=== PATIENT | female | born 1985 | race Caucasian/White ===

== ENCOUNTER → 2016-08-08 | Outpatient (CLI) | payer MEDICAID ==
[~2016-08-08] VITALS: Ht 167.6 cm; Wt 128.1 kg
[~2016-08-08] MED LIST: CEFTIN 250250 MG/TAB PO; FLINTSTONES COM1 CT1 PO; MOTRIN 200200 MG/TAB; NATURE'S BLE1000 MCG PO; NEURONTIN100 MG/CAP PO; NORCO 325 MG-7.1 TAB PO; PHENTERMINE15 MG PO; ROXICODONE 55 MG/TAB PO; TYLENOL 500MG500 MG PO; ULTRAM 50MG TAB50 MG PO; VITAMIN D1000 IU PO; XANAX XR1 M1 PO; ZOFRAN 4MG T4 MG/TAB PO
[2016-08-08 16:13] VITALS: BP 131/57; PULSE 104
[2016-08-08 16:34] VITALS: BP 131/57; PULSE 104
[2016-08-08 16:42] VITALS: BP 131/57; PULSE 104
== END ==
LOC: LIGHT 06-18 09:09
DX: F50.81 Binge eating disorder (principal); E78.4 Other hyperlipidemia; E66.01 Morbid (severe) obesity due to excess calories; Z68.42 Body mass index [BMI] 45.0-49.9, adult

== ENCOUNTER → 2016-08-27 | Outpatient (CLI) | payer MEDICAID ==
[~2016-08-27] VITALS: Ht 167.6 cm; Wt 124.7 kg
[2016-08-27 15:11] VITALS: BP 131/68; PULSE 83
[2016-08-27 17:57] VITALS: BP 131/68; PULSE 83
== END ==
LOC: LIGHT 14:26
DX: F50.89 Other specified eating disorder (principal); E78.4 Other hyperlipidemia; E66.01 Morbid (severe) obesity due to excess calories; Z68.41 Body mass index [BMI] 40.0-44.9, adult

== ENCOUNTER → 2016-09-24 | Outpatient (CLI) | payer MEDICAID ==
[~2016-09-24] VITALS: Ht 167.6 cm; Wt 124.7 kg
[2016-09-24 14:26] VITALS: BP 133/67; PULSE 75
== END ==
LOC: LIGHT 11:57
DX: F50.89 Other specified eating disorder (principal); E78.4 Other hyperlipidemia; F41.1 Generalized anxiety disorder; E66.01 Morbid (severe) obesity due to excess calories; Z68.41 Body mass index [BMI] 40.0-44.9, adult

== ENCOUNTER → 2016-10-14 | Outpatient (CLI) | payer MEDICAID ==
[~2016-10-14] VITALS: Ht 167.6 cm; Wt 124.7 kg
[2016-10-14 14:27] VITALS: BP 109/56; PULSE 92
== END ==
LOC: LIGHT 14:20
DX: F50.81 Binge eating disorder (principal); E78.4 Other hyperlipidemia; E66.01 Morbid (severe) obesity due to excess calories; Z68.41 Body mass index [BMI] 40.0-44.9, adult; F41.1 Generalized anxiety disorder

== ENCOUNTER 2016-11-06 16:50 | Inpatient (IN) | payer MEDICAID ==
[~2016-11-06] VITALS: Ht 167.6 cm; Wt 122.1 kg
[~2016-11-06 16:50] MED LIST changes: -FLINTSTONES COM1 CT1 PO; -NATURE'S BLE1000 MCG PO; -ROXICODONE 55 MG/TAB PO; -TYLENOL 500MG500 MG PO; -VITAMIN D1000 IU PO; -ZOFRAN 4MG T4 MG/TAB PO
[2016-11-27] VITALS (12 sets, daily range): BP systolic 121–133; BP diastolic 64–90; PULSE 77–98; TEMP 97.5–98
[2016-11-28 01:34] VITALS: BP 107/53; PULSE 72; TEMP 98.6
[2016-11-28 05:24] VITALS: BP 126/74; PULSE 70; TEMP 97.5
[2016-11-28 09:58] VITALS: BP 116/71; PULSE 68; TEMP 98.2
[2016-11-28] MEDS ORDERED: ZOFRAN 4MG T4 MG/TAB PO (12:14)
[2016-11-28] MEDS ORDERED: ROXICODONE 55 MG/TAB PO (12:15)
[2016-11-28] MEDS ORDERED: TYLENOL 500MG500 MG PO (12:17)
[2017-01-20] MEDS ORDERED: FLINTSTONES COM1 CT1 PO (13:24)
[2017-01-20] MEDS ORDERED: NATURE'S BLE1000 MCG PO (13:25)
[2017-01-20] MEDS ORDERED: VITAMIN D1000 IU PO (13:29)
== END 2016-11-28 13:20 | disposition home or self-care (01) | DRG 621 ==
LOC: SURG 11-27 05:59 → INPTSU 11-27 05:59 → SURG 11-27 08:30
PROVIDERS: Surgery
PROC: 0DB64Z3 Excision of Stomach, Percutaneous Endoscopic Approach, Vertical (ICD-10-PCS; principal; 2016-11-27 08:30)
DX: E66.01 Morbid (severe) obesity due to excess calories (principal); Z68.41 Body mass index [BMI] 40.0-44.9, adult; F50.81 Binge eating disorder; F41.1 Generalized anxiety disorder; Z87.891 Personal history of nicotine dependence
CPT/HCPCS: A9284; J0690; J1100; J1170; J1885; J2405; J2550; J2704; J7042; J7120; Q9968

== ENCOUNTER → 2016-11-13 | Outpatient (CLI) | payer MEDICAID ==
[~2016-11-13] MED LIST changes: +FLINTSTONES COM1 CT1 PO; +NATURE'S BLE1000 MCG PO; +ROXICODONE 55 MG/TAB PO; +TYLENOL 500MG500 MG PO; +VITAMIN D1000 IU PO; +ZOFRAN 4MG T4 MG/TAB PO
== END ==
LOC: LIGHT 14:00
DX: E66.01 Morbid (severe) obesity due to excess calories (principal); E78.4 Other hyperlipidemia; F41.1 Generalized anxiety disorder; E50.9 Vitamin A deficiency, unspecified

== ENCOUNTER → 2016-11-18 | Outpatient (CLI) | payer MEDICAID | LOC: LIGHT 09:48 | DX: Z02.89 Encounter for other administrative examinations (principal) ==

== ENCOUNTER 2016-12-05 22:23 | Emergency (ER) | payer MEDICAID ==
[~2016-12-05] VITALS: Ht 167.6 cm; Wt 113.6 kg
[~2016-12-05 22:23] MED LIST changes: -FLINTSTONES COM1 CT1 PO; -NATURE'S BLE1000 MCG PO; -VITAMIN D1000 IU PO
[2016-12-05 22:26] VITALS: BP 107/96; TEMP 97.9
[2016-12-05 23:20] LABS: PH 5 (5-8); URINE APPEARANCE Hazy; URINE BACTERIA Many /hpf; URINE BILIRUBIN Negative (NEGATIVE); URINE BLOOD 1+ (NEGATIVE); URINE COLOR Yellow; URINE GLUCOSE Negative (NEGATIVE); URINE KETONE 2+ (NEGATIVE); URINE UROBILINOGEN Negative (NEGATIVE); URINE WBC 20-50 /hpf
[2016-12-06] MEDS ORDERED: CEFTIN 250250 MG/TAB PO (00:12)
[2016-12-06 00:21] VITALS: PULSE 96
[2017-01-20] MEDS ORDERED: FLINTSTONES COM1 CT1 PO (13:24)
[2017-01-20] MEDS ORDERED: NATURE'S BLE1000 MCG PO (13:25)
[2017-01-20] MEDS ORDERED: VITAMIN D1000 IU PO (13:29)
== END 2016-12-06 00:21 | disposition home or self-care (01) ==
LOC: COL.ER 22:23
PROVIDERS: Emergency Medicine
DX: N39.0 Urinary tract infection, site not specified (principal); Z87.891 Personal history of nicotine dependence; Z98.890 Other specified postprocedural states; Z32.02 Encounter for pregnancy test, result negative

== ENCOUNTER → 2016-12-24 | Outpatient (CLI) | payer MEDICAID ==
[~2016-12-24] VITALS: Ht 167.6 cm; Wt 111.4 kg
[~2016-12-24] MED LIST changes: +FLINTSTONES COM1 CT1 PO; +NATURE'S BLE1000 MCG PO; +VITAMIN D1000 IU PO
[2016-12-24 15:33] VITALS: BP 113/57; PULSE 95
== END ==
LOC: LIGHT 12-17 14:06
DX: Z02.89 Encounter for other administrative examinations (principal)

== ENCOUNTER → 2017-01-20 | Outpatient (CLI) | payer MEDICAID ==
[~2017-01-20] VITALS: Ht 167.6 cm; Wt 106.6 kg
[2017-01-20 13:30] VITALS: BP 118/64; PULSE 68
== END ==
LOC: LIGHT 08:33
DX: F50.81 Binge eating disorder (principal); E78.5 Hyperlipidemia, unspecified; E66.01 Morbid (severe) obesity due to excess calories; Z68.37 Body mass index [BMI] 37.0-37.9, adult; Z71.3 Dietary counseling and surveillance; F41.1 Generalized anxiety disorder

== ENCOUNTER → 2017-03-03 | Outpatient (CLI) | payer MEDICAID ==
[~2017-03-03] VITALS: Ht 167.6 cm; Wt 96.4 kg
[2017-03-03 15:08] VITALS: BP 112/60; PULSE 64
== END ==
LOC: LIGHT 01-06 11:35
DX: F50.81 Binge eating disorder (principal); E78.5 Hyperlipidemia, unspecified; E66.01 Morbid (severe) obesity due to excess calories; Z68.34 Body mass index [BMI] 34.0-34.9, adult; Z71.3 Dietary counseling and surveillance; F41.1 Generalized anxiety disorder

== ENCOUNTER → 2017-05-26 | Outpatient (CLI) | payer MEDICAID ==
[~2017-05-26] VITALS: Ht 167.6 cm; Wt 86.9 kg
[2017-05-26 15:09] VITALS: BP 90/56; PULSE 80
== END ==
LOC: LIGHT 12:17
DX: F50.81 Binge eating disorder (principal); E78.5 Hyperlipidemia, unspecified; E66.01 Morbid (severe) obesity due to excess calories; Z68.30 Body mass index [BMI] 30.0-30.9, adult; Z71.3 Dietary counseling and surveillance; F41.1 Generalized anxiety disorder

== ENCOUNTER → 2017-11-25 | Outpatient (CLI) | payer MEDICAID | LOC: SUN.DIA 11-04 10:14 | DX: O24.419 Gestational diabetes mellitus in pregnancy, unspecified control (principal); Z3A.00 Weeks of gestation of pregnancy not specified; Z87.891 Personal history of nicotine dependence | CPT/HCPCS: G0108 ==

== ENCOUNTER 2018-01-05 07:30 | Outpatient (CLI) | payer MEDICAID ==
[~2018-01-05] VITALS: Ht 167.6 cm; Wt 90.0 kg
[2018-01-05 07:37] VITALS: BP 114/70; PULSE 87; TEMP 97.6
[2018-01-05] MEDS ORDERED: PRENATAL1 TA7 PO (07:51)
[2018-01-05] MEDS ORDERED: TYLENOL PM EXTR1 TA1 PO (07:51)
== END 2018-01-05 08:35 | disposition home or self-care (01) ==
LOC: LDRO 07:30 → LDR 07:40 → LDRO 08:35
DX: O42.92 Full-term premature rupture of membranes, unspecified as to length of time between rupture and onset of labor (principal); Z3A.39 39 weeks gestation of pregnancy
CPT/HCPCS: OP

== ENCOUNTER 2018-01-12 05:31 | Inpatient (IN) | payer MEDICAID ==
[~2018-01-12] VITALS: Ht 167.6 cm; Wt 90.0 kg
[2018-01-12] VITALS (17 sets, daily range): BP systolic 85–139; BP diastolic 48–75; PULSE 69–100; TEMP 97–98.7
[~2018-01-12 05:31] MED LIST changes: +PRENATAL1 TA7 PO; +TYLENOL PM EXTR1 TA1 PO
[2018-01-12 06:43] LABS: BASO % 0.4 % (0.0-2.0); EOS # 0.1 (0.0-0.7); EOS % 1.3 % (0-4.0); GRAN # 5.9 (1.4-6.5); HEMOGLOBIN 10.3 g/dl (12.5-16.0); LYMPH # 4.1 (1.2-3.4); LYMPH % 37.1 % (20.0-51.0); MEAN CELL VOLUME 81 fl (80.0-100.0); MEAN CORPUSCULAR HEMOGLOBIN 27 pg (27.0-31.0); MEAN CORPUSCULAR HGB CONC 34 g/dl (33.0-37.0); MEAN PLATELET VOLUME 9.9 fl (7.4-10.4); MONO # 0.8 (0.1-0.6); MONO % 7.4 % (1.7-9.3); PLATELET COUNT 328 K/mm3 (130-400); RED BLOOD COUNT 3.77 M/mm3 (4.10-5.30); REDCELL DISTRIBUTION WIDTH-CV 13.3 % (11.5-14.5)
[2018-01-12 06:48] LABS: HEMATOCRIT 30.6 % (37.0-47.0)
[2018-01-12] MEDS ORDERED: MOTRIN 800800 MG/TAB PO (08:15)
[2018-01-12] MEDS ORDERED: PERCOCET 325 MG1 TA2 PO (08:15)
[2018-01-13 05:00] VITALS: BP 108/66; PULSE 67; TEMP 97.8
[2018-01-13 07:56] VITALS: BP 114/66; PULSE 72; TEMP 98.1
== END 2018-01-13 14:15 | disposition home or self-care (01) | DRG 766 ==
LOC: OB 05:31 → LDR 09:25 → OB 01-13 14:15
PROVIDERS: Obstetrics & Gynecology
PROC: 10D00Z1 Extraction of Products of Conception, Low, Open Approach (ICD-10-PCS; principal; 2018-01-12)
DX: O34.211 Maternal care for low transverse scar from previous cesarean delivery (principal); O99.344 Other mental disorders complicating childbirth; F32.9 Major depressive disorder, single episode, unspecified; Z3A.39 39 weeks gestation of pregnancy; Z37.0 Single live birth
CPT/HCPCS: J0171; J0690; J1885; J2175; J2370; J2405; J2590; J3010; J7120

== ENCOUNTER 2020-01-06 16:30 | Outpatient (RCR) | payer OTHER ==
[2019-12-30 12:30] VITALS: BP 92/55; PULSE 80; TEMP 98
--- NOTE | 2020-01-03 17:15 | NUR ---
[id number] [address] Kerns in express unit for iron infusion. Patient reports good movement and denies contractions. This RN to patient room for heart rate eval. Patient placed on EFM. RN remains at bedside. Reactive FHR with baseline 135bpm +accels moderate variability. EFM off and updated express unit RN who cares for patient.
[2020-01-03 17:41] VITALS: BP 108/69; PULSE 81; TEMP 98.2
[~2020-01-06] VITALS: Ht 167.6 cm; Wt 97.0 kg
[~2020-01-06 16:30] MED LIST changes: +MOTRIN 800800 MG/TAB PO; +PERCOCET 325 MG1 TA2 PO
[2020-01-06 17:04] VITALS: BP 104/60; PULSE 81; TEMP 98.3
== END 2020-01-06 19:06 | disposition home or self-care (01) ==
LOC: EUO 16:30
DX: O99.019 Anemia complicating pregnancy, unspecified trimester (principal); Z3A.00 Weeks of gestation of pregnancy not specified
CPT/HCPCS: J2916; J7050

== ENCOUNTER → 2020-02-15 | Outpatient (CLI) | payer OTHER ==
[~2020-02-15] MED LIST changes: +NEXIUM 20MG20 MG PO
== END ==
LOC: ZCOL.LAB 08:00
DX: Z01.89 Encounter for other specified special examinations (principal)

== ENCOUNTER 2020-02-21 05:33 | Inpatient (IN) | payer OTHER ==
[2020-02-21] VITALS (18 sets, daily range): BP systolic 87–115; BP diastolic 49–98; PULSE 62–111; TEMP 97.6–98
[~2020-02-21] VITALS: Ht 165.2 cm; Wt 97.3 kg
[~2020-02-21 05:33] MED LIST changes: -NEXIUM 20MG20 MG PO
[2020-02-21 06:34] LABS: BASO % 0.4 % (0.0-2.0); EOS # 0.2 (0.0-0.7); EOS % 1.6 % (0-4.0); GRAN # 5.8 (1.4-6.5); GRAN % 58.2 % (42.2-75.2); LYMPH # 3.2 (1.2-3.4); LYMPH % 32.4 % (20.0-51.0); MEAN CELL VOLUME 78 fl (80.0-100.0); MEAN CORPUSCULAR HEMOGLOBIN 25 pg (27.0-31.0); MEAN CORPUSCULAR HGB CONC 32 g/dl (33.0-37.0); MEAN PLATELET VOLUME 9.8 fl (7.4-10.4); MONO # 0.7 (0.1-0.6); MONO % 6.6 % (1.7-9.3); PLATELET COUNT 350 K/mm3 (130-400)
[2020-02-21] MEDS ORDERED: NEXIUM 20MG20 MG PO (06:52)
[2020-02-21 06:59] LABS: HEMATOCRIT 30.9 % (37.0-47.0)
[2020-02-21 12:42] LABS: RED BLOOD COUNT 3.96 M/mm3 (4.10-5.30)
[2020-02-21] MEDS ORDERED: PERCOCET 325 MG1 TA2 PO (13:56)
[2020-02-21] MEDS ORDERED: MOTRIN 800800 MG/TAB PO (13:56)
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
[2020-02-22 02:15] VITALS: BP 110/65; PULSE 66; TEMP 97.2
[2020-02-22 05:30] VITALS: BP 102/49; PULSE 68; TEMP 98.2
[2020-02-22 08:15] VITALS: BP 103/63; PULSE 64; TEMP 97.7
--- NOTE | 2020-02-22 09:37 | NUR ---
Initial visit; Parents thanked [employer] for offering congratulations and God's blessings for the of their son. [employer] thanked family for choosing [facility].
[2020-02-22 11:37] VITALS: BP 117/65; PULSE 72; TEMP 98.4
--- NOTE | 2020-02-22 14:07 | NUR ---
Patient given discharge instructions. Denies questions.y
== END 2020-02-22 14:45 | disposition home or self-care (01) | DRG 788 ==
LOC: OB 05:33
PROVIDERS: ADMIT Obstetrics & Gynecology
PROC: 10D00Z1 Extraction of Products of Conception, Low, Open Approach (ICD-10-PCS; principal; 2020-02-21)
DX: O34.211 Maternal care for low transverse scar from previous cesarean delivery (principal); Z37.0 Single live birth; O99.02 Anemia complicating childbirth; D64.9 Anemia, unspecified; O99.344 Other mental disorders complicating childbirth; F41.9 Anxiety disorder, unspecified; F32.9 Major depressive disorder, single episode, unspecified; O69.81X0 Labor and delivery complicated by cord around neck, without compression, not applicable or unspecified; O99.214 Obesity complicating childbirth; E66.9 Obesity, unspecified; O99.62 Diseases of the digestive system complicating childbirth; K21.9 Gastro-esophageal reflux disease without esophagitis; Z3A.39 39 weeks gestation of pregnancy; Z98.84 Bariatric surgery status; Z87.891 Personal history of nicotine dependence
CPT/HCPCS: J0690; J1885; J2270; J2370; J2405; J2550; J2590; J2765; J7120

== ENCOUNTER 2022-05-15 03:01 | Emergency (ER) | payer OTHER, MEDICAID ==
[~2022-05-15] VITALS: Ht 167.6 cm; Wt 88.6 kg
[~2022-05-15 03:01] MED LIST changes: +NEXIUM 20MG20 MG PO
[2022-05-15 03:04] VITALS: BP 143/90; TEMP 97.3
[2022-05-15] MEDS ORDERED: CLEOCIN HC150 MG/CAP PO (03:17)
[2022-05-15 03:28] VITALS: PULSE 89
== END 2022-05-15 03:28 | disposition home or self-care (01) ==
LOC: COL.ER 03:01
DX: K08.89 Other specified disorders of teeth and supporting structures (principal); R60.0 Localized edema; F17.200 Nicotine dependence, unspecified, uncomplicated; Z28.310 Unvaccinated for COVID-19

== ENCOUNTER 2022-11-07 04:12 | Emergency (ER) | payer OTHER ==
[~2022-11-07] VITALS: Ht 167.6 cm; Wt 84.1 kg
[~2022-11-07 04:12] MED LIST changes: +CLEOCIN HC150 MG/CAP PO
[2022-11-07 04:45] LABS: COLLECTION METHOD CLEAN CATCH
[2022-11-07 04:48] LABS: MEAN CELL VOLUME 66 fl (80.0-100.0); MEAN CORPUSCULAR HGB CONC 30 g/dl (33.0-37.0); MEAN PLATELET VOLUME 8.7 fl (7.4-10.4); PLATELET COUNT 591 K/mm3 (130-400); RED BLOOD COUNT 4.87 M/mm3 (4.10-5.30); REDCELL DISTRIBUTION WIDTH-CV 19.6 % (11.5-14.5)
[2022-11-07 04:50] LABS: PH 6.5 (5.0-8.5); URINE APPEARANCE Clear (CLEAR/HAZY); URINE BLOOD TRACE-INTACT (NEGATIVE); URINE COLOR Yellow (YELLOW); URINE GLUCOSE Negative (NEGATIVE); URINE KETONE Negative (NEGATIVE); URINE NITRATE Negative (NEGATIVE); URINE PROTEIN(semi-quant) Negative (NEGATIVE); URINE UROBILINOGEN 0.2 E.U/dL (0.2-1.0)
[2022-11-07 04:51] LABS: HEMATOCRIT 32.1 % (37.0-47.0); HEMOGLOBIN 9.5 g/dl (12.5-16.0); MEAN CORPUSCULAR HEMOGLOBIN 20 pg (27-31)
[2022-11-07 04:58] LABS: BASO # 0.1 K/mm3 (0.0-0.2); BASO % 2.1 % (0.0-2.0); EOS # 0.1 K/mm3 (0.0-0.7); EOS % 1.5 % (0.0-4.0); GRAN # 3.3 K/mm3 (1.4-6.5); GRAN % 54.9 % (42.2-75.2); LYMPH # 1.9 K/mm3 (1.2-3.4); LYMPH % 31.2 % (20.0-51.0); MONO # 0.6 K/mm3 (0.1-0.6); MONO % 10.1 % (1.7-9.3)
[2022-11-07 04:59] LABS: MUCOUS Present (NOT PRESENT); URINE BACTERIA None Seen /hpf (NONE SEEN)
[2022-11-07 05:13] LABS: ALANINE AMINOTRANSFERASE 9 U/L (0-55); ALBUMIN 4.1 gm/dL (3.5-5.0); ALKALINE PHOSPHATASE 68 U/L (40-150); ANION GAP 10 mmol/L (7-16); AST,SGOT 15 U/L (5-34); BILIRUBIN,TOTAL 0.3 mg/dL (0.2-1.2); BLOOD UREA NITROGEN 17 mg/dL (7-19); CALCIUM 8.9 mg/dL (8.4-10.2); CARBON DIOXIDE 22 mmol/L (22-29); CHLORIDE 108 mmol/L (98-107); CREATININE, serum 0.77 mg/dL (0.57-1.11); GLUCOSE 96 mg/dL (70-99); SODIUM 140 mmol/L (136-145); TOTAL PROTEIN 6.7 gm/dL (6.2-8.1)
[2022-11-07 05:14] LABS: TRICYCLIC ANTIDEPRESS URINE NEGATIVE
[2022-11-07 05:16] LABS: ACETAMINOPHEN < 1.0 ug/mL (10-30); ALCOHOL(ethanol),MEDICAL < 10 mg/dL (0-10); SALICYLATE < 5.0 mg/dL (15.0-30.0)
[2022-11-07 05:27] LABS: TSH w REFLEX 1.145 uIU/mL (0.350-4.940)
[2022-11-07 08:23] LABS: PHOSPHOROUS 2.3 mg/dL (2.3-4.7)
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
[2022-11-07 13:15] VITALS: BP 138/72; PULSE 88; TEMP 96.4
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
== END 2022-11-07 13:15 ==
LOC: COL.ER 04:12
PROVIDERS: Emergency Medicine
DX: R44.1 Visual hallucinations (principal); R44.0 Auditory hallucinations; E87.6 Hypokalemia; F17.290 Nicotine dependence, other tobacco product, uncomplicated; Z28.310 Unvaccinated for COVID-19; Z86.59 Personal history of other mental and behavioral disorders; Z20.822 Contact with and (suspected) exposure to COVID-19